=== PATIENT | male | born 1975 | race Caucasian/White ===

== ENCOUNTER 2017-03-22 21:36 | Emergency (ER) | payer BC ==
--- NOTE | 2017-03-22 22:07 | ERNOTE ---
ENT HPI Date of Service: 03/22/17 Presenting Symptoms: other - throat pain Time Seen by Provider: 03/22/17 22:02 Source: patient - Immun/Allergies/Home Medications Immunizations: IMMUNIZATION HX Immunizations Up to Date Yes History of Influenza Vaccine No Hx Pneumococcal Vaccination No Allergies/Adverse Reactions: Allergies Allergy/AdvReac Type Severity Reaction Status Date / Time No Known Allergies Allergy Unverified 03/22/17 21:54 Home Medications: HOME MEDICATIONS NK [No Home Medication] 03/22/17 [Last Taken Unknown] - History of Present Illness Narrative: This is a 41-year-old male who says he was fine this morning when he got up. He was outside working in the weather and noticed that his throat started causing him pain. He said it got worse throughout the day until this evening he was having some much pain he couldn't even sleep. He says he feels like there is some swelling in his throat when he lays down he feels like he anna. These never had any trouble with his tonsils in the past but he does say that he had a fever yesterday. No sick contacts that he is aware of no nausea vomiting coughing or any other complaints Review of Systems - Review of Systems Constitutional: Present: no symptoms reported EYE: Present: no symptoms reported ENT: Present: sore throat, throat swelling Respiratory: Present: no symptoms reported Cardiology: Present: no symptoms reported Gastrointestinal/Abdominal: Present: no symptoms reported Genitourinary: Present: no symptoms reported Musculoskeletal: Present: no symptoms reported Skin: Present: no symptoms reported Neurological: Present: no symptoms reported Endocrine: Present: no symptoms reported Hematologic/Lymphatic: Present: no symptoms reported Psych: Present: no symptoms reported - Patient's Past Medical History Patient History - Medical: No pertinent hx Patient History - Cardiac/Respiratory: No pertinent hx Patient History - Cancer: No Hx of Cancer Patient History - Surgical Procedures: No surgical history Patient History - Other: None - Social History Living Situations: spouse Psych History: No pertinent hx Smoking Status: Current every day smoker Have you smoked in the past 12 months: Yes Do you dip or chew tobacco: No Alcohol Use: rarely Drug Use: none - Immunizations Immunizations Up to Date: Yes Hx Pneumococcal Vaccination: No History of Influenza Vaccine: No Physical Exam - Physical Exam General Appearance: Present: wd/wn, alert, no apparent distress Head Exam: Present: normal inspection, no evidence of injury Eye Exam: Normal inspection: bilateral, PERRL: bilateral Ears, Nose, Throat: Present: other - patient has tonsillar hypertrophy with pharyngeal erythema. No tonsillar exudate Neck: Present: normal inspection, nontender Respiratory: Present: no respiratory distress, normal breath sounds, lungs clear Cardiovascular/Chest: Present: regular rate, rhythm, no murmur Gastrointestinal/Abdominal: Present: normal bowel sounds, soft Back Exam: Present: normal inspection, normal range of motion, no CVA tenderness Extremity Exam: Present: normal inspection, non-tender, no edema Neurological Exam: Present: alert, oriented, normal mood/affect, no motor/ sensory deficits Skin Exam: Present: normal color, warm/dry Lymphatic Exam: Present: no adenopathy ED Progress - Results and Orders Patient's Lab Results:: I have reviewed the patient's lab results. - Vital Signs Patient's Vital Signs:: I have reviewed the patient's vital signs. Vital Signs: Vital Signs 03/22/17 21:49 Temperature 36.6 C Pulse Rate 88 Respiratory 16 Rate Blood Pressure 146/92 O2 Sat by Pulse 99 Oximetry - Progress/Reassessment Chief Complaint: Sore Throat Departure Clinical Impression: Pharyngitis - Departure Disposition: Home self-care Condition: Good Instructions: Tonsillitis, [id number] Additional Instructions: As we discussed her tonsillar pillars are slightly irritated. U have no signs of strep throat however. Your sore throat is almost certainly due to a viral infection. This will likely be sore for a couple of days. He can try sucking on hard candy or Cepacol lozenges to get some relief. You can feel free to go asleep if you are able. Try sleeping in a recliner sitting up. There is no chance that you are going to fall asleep and blocked her airway and in her sleep. Call your family doctor, tell them you were seen in the ER, and set up a follow- up appointment Return to the ER for new concerning symptoms
[2017-03-22 22:39] VITALS: BP 138/84
== END 2017-03-22 22:37 | disposition home or self-care (01) ==
LOC: ER 21:36
DX: J02.9 Acute pharyngitis, unspecified (principal); F17.200 Nicotine dependence, unspecified, uncomplicated